=== PATIENT | female | born 1930 | race Caucasian/White ===

== ENCOUNTER → 2016-11-28 | Outpatient (CLI) | payer MEDICARE, BC ==
[~2016-11-28] MED LIST: ALAWAY 10 ML10 ML OP; ANTI-DIARRHEAL2 MG PO; ASPIRIN E.C. 8181 MG PO; ATIVAN 1MG T1 MG/TAB PO; ATROVENTNS0.03% NS; BETAPACE 80MG80 MG PO; BONIVA150 MG PO; CALCIUM1 CAP PO; COZAAR 50MG50 MG/TAB PO; DUO-KAPS1 CAP PO; FEROSUL325 MG PO; FLONASE NASAL S16 GM NS; FOLIC ACID 11 MG/TA1 PO; FOSAMAX 70MG TA70 MG PO; GAS AID MAXIMU125 MG PO; GAS RELIEF80 MG PO; IMDUR ER30 MG PO; IMODIUM 2MG CAPS2 MG PO; IPRATROPIUM BROM3 M1 IH; KLOR-CON M2020 MEQ PO; LASIX 20MG TABL20 MG PO; LORTAB 7.5/5001 TAB PO; MASON NATURAL L20 MG PO; MIRAPEX 0.0.125 MG/T PO; MOBIC 7.5MG7.5 MG PO; MOBIC7.5 M1 PO; MUCINEX 60600 MG/TA1 PO; MULTI VITAMINS1 TAB PO; NEURONTIN100 MG PO; NEURONTIN100 MG/CAP PO; NIFEREX-15150 MG/CAP PO; NORCO 325 MG-51 TAB PO; NORCO 325 MG-7.1 TAB PO; OCUVITE1 TA1 PO; PANTOPRAZOLE40 MG PO; PEPCID AC 10MG10 MG PO; PHENERGAN 25 TA25 MG PO; PLAVIX 75MG TAB75 MG PO; PLETAL 100MG T100 MG PO; PRADAXA PO; PREVACID 15MG15 M1 PO; PROBIOTIC FORMU1 CAP PO; PROTONIX 40MG T40 MG PO; SYSTANE LUBRICAN5 ML OP; TYLENOL 325MG325 MG PO; TYLENOL 500MG500 MG PO; VALTREX 50500 MG/TAB PO; VALTREX1 GM PO; VITAMIN B COMPL1 TA1 PO; VITAMIN D31000 IU PO; VOLTAREN GEL 1%1 TU TP; ZOCOR 10MG10 MG PO; ZOLOFT100 MG PO; ZYRTEC 10MG10 MG PO; ZYRTEC10 MG PO
== END ==
LOC: WCC 11:02
DX: I73.9 Peripheral vascular disease, unspecified (principal); S81.802A Unspecified open wound, left lower leg, initial encounter
CPT/HCPCS: 17717; 18806; A6197; A6212; G0463

== ENCOUNTER → 2017-03-05 | Outpatient (CLI) | payer MEDICARE, BC ==
[~2017-03-05] MED LIST changes: +ASPIRIN 81M81 MG/TA2 PO; +CALCIUM 600-D 61 TAB PO; +K-DUR20 MEQ PO; +NATURAL IRON65 MG PO; +SYSTANE 0.3-0.1 EACH OP
== END ==
LOC: MHCPAIN 11:05
DX: G89.29 Other chronic pain (principal); M47.817 Spondylosis without myelopathy or radiculopathy, lumbosacral region; M96.1 Postlaminectomy syndrome, not elsewhere classified; Z79.02 Long term (current) use of antithrombotics/antiplatelets
CPT/HCPCS: G0463

== ENCOUNTER → 2017-03-14 | Outpatient (CLI) | payer MEDICARE, BC | LOC: MHCPAIN 13:19 | DX: M47.817 Spondylosis without myelopathy or radiculopathy, lumbosacral region (principal) | CPT/HCPCS: J1040; Q9967 ==

== ENCOUNTER 2017-03-28 09:00 | Inpatient (IN) | payer MEDICARE, BC ==
[~2017-03-28] VITALS: Ht 152.4 cm; Wt 47.5 kg
[~2017-03-28 09:00] MED LIST changes: -ANTI-DIARRHEAL2 MG PO; -ASPIRIN 81M81 MG/TA2 PO; -CALCIUM 600-D 61 TAB PO; -FOLIC ACID 11 MG/TA1 PO; -K-DUR20 MEQ PO; -NATURAL IRON65 MG PO; -NIFEREX-15150 MG/CAP PO; -NORCO 325 MG-7.1 TAB PO; -PROBIOTIC FORMU1 CAP PO; -SYSTANE 0.3-0.1 EACH OP; -VALTREX1 GM PO
[2017-05-29] VITALS (11 sets, daily range): BP systolic 100–135; BP diastolic 35–84; PULSE 65–90; TEMP 97.5–99.9
[2017-05-29] MEDS ORDERED: ANTI-DIARRHEAL2 MG PO (01:41)
[2017-05-29] MEDS ORDERED: FOLIC ACID 11 MG/TA1 PO (01:42)
[2017-05-29] MEDS ORDERED: NIFEREX-15150 MG/CAP PO (06:01)
[2017-05-29] MEDS ORDERED: NORCO 325 MG-7.1 TAB PO ×2 (06:02)
[2017-05-29] MEDS ORDERED: MIRAPEX 0.0.125 MG/T PO (06:03)
[2017-05-29] MEDS ORDERED: PROBIOTIC FORMU1 CAP PO (06:04)
[2017-05-29] MEDS ORDERED: VALTREX1 GM PO (06:06)
[2017-05-30 01:46] VITALS: BP 93/70; PULSE 90; TEMP 97.5
[2017-05-30 04:28] VITALS: BP 111/42; PULSE 83; TEMP 97.8
[2017-05-30 06:48] LABS: HEMATOCRIT 32.9 % (37.0-47.0); HEMOGLOBIN 11.1 g/dl (12.5-16.0)
[2017-05-30 07:54] VITALS: BP 99/38; PULSE 73; TEMP 97.7
[2017-05-30 12:04] VITALS: BP 108/43; PULSE 67; TEMP 98.6
== END 2017-05-30 15:20 | disposition home or self-care (01) | DRG 483 ==
LOC: SURG 05-29 05:26 → JCC 05-29 07:30 → SURG 05-30 15:20
PROVIDERS: Orthopaedic Surgery
PROC: 0RRK0JZ Replacement of Left Shoulder Joint with Synthetic Substitute, Open Approach (ICD-10-PCS; principal; 2017-05-29 07:30)
DX: M19.012 Primary osteoarthritis, left shoulder (principal); Z85.038 Personal history of other malignant neoplasm of large intestine; Z87.891 Personal history of nicotine dependence
CPT/HCPCS: A9284; C1713; C1776; J0690; J1100; J2550; J2795; J3010

== ENCOUNTER → 2017-05-13 | Outpatient (CLI) | payer MEDICARE, BC ==
[~2017-05-13] MED LIST changes: +ANTI-DIARRHEAL2 MG PO; +ASPIRIN 81M81 MG/TA2 PO; +CALCIUM 600-D 61 TAB PO; +FOLIC ACID 11 MG/TA1 PO; +K-DUR20 MEQ PO; +NATURAL IRON65 MG PO; +NIFEREX-15150 MG/CAP PO; +NORCO 325 MG-7.1 TAB PO; +PROBIOTIC FORMU1 CAP PO; +SYSTANE 0.3-0.1 EACH OP; +VALTREX1 GM PO
== END ==
LOC: MHCPAIN 12:24
DX: G89.29 Other chronic pain (principal); M47.817 Spondylosis without myelopathy or radiculopathy, lumbosacral region; M53.3 Sacrococcygeal disorders, not elsewhere classified; M96.1 Postlaminectomy syndrome, not elsewhere classified; Z87.891 Personal history of nicotine dependence
CPT/HCPCS: G0463

== ENCOUNTER → 2017-07-23 | Outpatient (CLI) | payer MEDICARE, BC ==
[~2017-07-23] MED LIST changes: +BETAMETHASONE D60 M2 TOP; +BOOST PLUS 240240 ML PO; +LOVENOX150 MG/ML SQ; +SYSTANE 0.4%-0.1 SOL OU; +VITAMIND3 5000 PO
== END ==
LOC: MHCPAIN 14:22
DX: G89.29 Other chronic pain (principal); M47.817 Spondylosis without myelopathy or radiculopathy, lumbosacral region; M53.3 Sacrococcygeal disorders, not elsewhere classified; M96.1 Postlaminectomy syndrome, not elsewhere classified; Z87.891 Personal history of nicotine dependence; Z79.82 Long term (current) use of aspirin
CPT/HCPCS: G0463

== ENCOUNTER 2017-08-06 13:13 | Day surgery (SDC) | payer MEDICARE, BC ==
[~2017-08-06] VITALS: Ht 152.4 cm; Wt 48.0 kg
[~2017-08-06 13:13] MED LIST changes: -ASPIRIN 81M81 MG/TA2 PO; -BETAMETHASONE D60 M2 TOP; -BOOST PLUS 240240 ML PO; -CALCIUM 600-D 61 TAB PO; -K-DUR20 MEQ PO; -LOVENOX150 MG/ML SQ; -NATURAL IRON65 MG PO; -SYSTANE 0.3-0.1 EACH OP; -SYSTANE 0.4%-0.1 SOL OU; -VITAMIND3 5000 PO
[2017-08-06 13:42] VITALS: BP 120/80; PULSE 64; TEMP 97.9
[2017-08-06] MEDS ORDERED: TYLENOL 500MG500 MG PO (14:12)
[2017-08-06] MEDS ORDERED: ASPIRIN 81M81 MG/TA2 PO (14:13)
[2017-08-06] MEDS ORDERED: FOSAMAX 70MG TA70 MG PO (14:13)
[2017-08-06] MEDS ORDERED: CALCIUM 600-D 61 TAB PO (14:14)
[2017-08-06] MEDS ORDERED: ZYRTEC 10MG10 MG PO (14:15)
[2017-08-06] MEDS ORDERED: PLAVIX 75MG TAB75 MG PO (14:15)
[2017-08-06] MEDS ORDERED: MULTI VITAMINS1 TAB PO (14:16)
[2017-08-06] MEDS ORDERED: NATURAL IRON65 MG PO (14:17)
[2017-08-06] MEDS ORDERED: MUCINEX 60600 MG/TA1 PO (14:18)
[2017-08-06] MEDS ORDERED: NEURONTIN100 MG/CAP PO (14:18)
[2017-08-06] MEDS ORDERED: NORCO 325 MG-7.1 TAB PO (14:19)
[2017-08-06] MEDS ORDERED: ALAWAY 10 ML10 ML OP (14:20)
[2017-08-06] MEDS ORDERED: IMODIUM 2MG CAPS2 MG PO (14:20)
[2017-08-06] MEDS ORDERED: ATIVAN 1MG T1 MG/TAB PO (14:21)
[2017-08-06] MEDS ORDERED: PROTONIX 40MG T40 MG PO (14:25)
[2017-08-06] MEDS ORDERED: SYSTANE 0.3-0.1 EACH OP (14:26)
[2017-08-06] MEDS ORDERED: K-DUR20 MEQ PO (14:27)
[2017-08-06] MEDS ORDERED: MIRAPEX 0.0.125 MG/T PO (14:28)
[2017-08-06] MEDS ORDERED: ZOCOR 10MG10 MG PO (14:28)
[2017-08-06] MEDS ORDERED: BETAPACE 80MG80 MG PO (14:29)
[2017-08-06 15:15] VITALS: BP 83/47; PULSE 60
[2017-08-06 15:30] VITALS: BP 153/54; PULSE 64
[2017-08-06 15:45] VITALS: BP 147/73; PULSE 61; PULSE 62
[2017-08-06 16:00] VITALS: BP 152/59; PULSE 59
== END 2017-08-06 16:35 | disposition home or self-care (01) ==
LOC: SDCO 13:13
DX: K44.9 Diaphragmatic hernia without obstruction or gangrene (principal); K29.30 Chronic superficial gastritis without bleeding; I25.10 Atherosclerotic heart disease of native coronary artery without angina pectoris; M19.90 Unspecified osteoarthritis, unspecified site; Z90.49 Acquired absence of other specified parts of digestive tract; Z90.710 Acquired absence of both cervix and uterus; Z96.619 Presence of unspecified artificial shoulder joint; Z85.038 Personal history of other malignant neoplasm of large intestine
CPT/HCPCS: OP; J2704; J7120

== ENCOUNTER → 2017-08-15 | Outpatient (CLI) | payer MEDICARE, BC ==
[~2017-08-15] MED LIST changes: +ASPIRIN 81M81 MG/TA2 PO; +CALCIUM 600-D 61 TAB PO; +K-DUR20 MEQ PO; +NATURAL IRON65 MG PO; +SYSTANE 0.3-0.1 EACH OP
== END ==
LOC: MHCPAIN 08:48
DX: M47.817 Spondylosis without myelopathy or radiculopathy, lumbosacral region (principal); M53.3 Sacrococcygeal disorders, not elsewhere classified; Z98.1 Arthrodesis status
CPT/HCPCS: J1040; Q9967

== ENCOUNTER → 2017-08-29 | Outpatient (CLI) | payer MEDICARE, BC | LOC: ZCOL.LAB 16:18 | DX: J32.9 Chronic sinusitis, unspecified (principal) ==

== ENCOUNTER → 2017-11-06 | Outpatient (CLI) | payer MEDICARE, BC | LOC: MHCPAIN 12:09 | DX: G89.29 Other chronic pain (principal); M47.27 Other spondylosis with radiculopathy, lumbosacral region; M53.3 Sacrococcygeal disorders, not elsewhere classified; M96.1 Postlaminectomy syndrome, not elsewhere classified; Z87.891 Personal history of nicotine dependence | CPT/HCPCS: G0463 ==

== ENCOUNTER → 2017-11-21 | Outpatient (CLI) | payer MEDICARE, BC | LOC: MHCPAIN 12:29 | DX: M51.16 Intervertebral disc disorders with radiculopathy, lumbar region (principal); M96.1 Postlaminectomy syndrome, not elsewhere classified | CPT/HCPCS: J1040; Q9967 ==

== ENCOUNTER → 2018-03-12 | Outpatient (CLI) | payer MEDICARE, BC | LOC: COL.RAD 07:42 | DX: N28.1 Cyst of kidney, acquired (principal); K83.8 Other specified diseases of biliary tract; I70.0 Atherosclerosis of aorta; Z90.49 Acquired absence of other specified parts of digestive tract | CPT/HCPCS: Q9967 ==

== ENCOUNTER 2018-03-17 21:52 | Emergency (ER) | payer MEDICARE, BC ==
[~2018-03-17] VITALS: Ht 152.4 cm; Wt 48.2 kg
[2018-03-17 21:59] VITALS: TEMP 97.9
[2018-03-18 00:15] VITALS: BP 175/65; PULSE 67
== END 2018-03-18 00:15 | disposition home or self-care (01) ==
LOC: COL.ER 21:52
DX: S42.031A Displaced fracture of lateral end of right clavicle, initial encounter for closed fracture (principal); S00.03XA Contusion of scalp, initial encounter; J32.9 Chronic sinusitis, unspecified; Z79.02 Long term (current) use of antithrombotics/antiplatelets; W01.10XA Fall on same level from slipping, tripping and stumbling with subsequent striking against unspecified object, initial encounter; Y92.009 Unspecified place in unspecified non-institutional (private) residence as the place of occurrence of the external cause
CPT/HCPCS: J1885